=== PATIENT | female | born 1945 | race Caucasian/White ===

== ENCOUNTER → 2016-11-03 | Outpatient (CLI) | payer MEDICARE, BC ==
[~2016-11-03] MED LIST: ACCUPRIL10 M1 PO; ACCUPRIL20TAB PO; ACIDOPHILUS PO; AMBIEN 5MG TABLE5 MG PO; ANTI-DIARRHEAL2 MG PO; ASPIRIN 81M81 MG/TA2 PO; BINOSTO; BYSTOLIC5 MG PO; CALCIUM 500500 M1 PO; CALCIUM 600MG+D1 TAB PO; CALCIUM600 M2 PO; CARAFATE 1GM1 G PO; CARDI-OMEGA1000 MG PO; CIPRO 500MG TA500 MG PO; CLEOCIN HCL300 MG PO; CLONIDINE0.1 MG PO; COLACE 100100 MG/CAP PO; DULCOLAX S10 MG/SUPP RC; DUO-KAPS1 CAP PO; EPA FISH OIL1 SGL PO; FISH OIL 1000MG1 CAP PO; FISH OIL CONC1000 MG PO; FLAGYL500 MG PO; FLAXSEED OIL1 CAP PO; FLEXERIL5 MG PO; FLONASE NASAL S16 GM NS; FLONASEALLERGY NS; GAVISCON 80 MG-1 CT1 PO; GLUCOSAMINE; IBU800 M1 PO; LIDODERM PATCH TP; MAGNESIUM CITR100 MG PO; MELAT3MGTAB PO; METAMUCIL1 PDR PO; METRONIDAZOLE500 MG PO; MILK OF MA400 MG/52 PO; MULTIPLE VITAMI1 TA5 PO; NEURONTIN300 MG/CAP PO; NEW ENERGY1 CAP PO; NORCO 325 MG-51 TAB PO; OYSCO 500500 M1 PO; OYSTER CALCIUM500 M1 PO; PERCOCET 325 MG1 TA2 PO; PLAVIX 75MG TAB75 MG PO; POTASSIUM CH2 MEQ/ML PO; POTASSIUM20 MEQ PO; PRIL40 PO; PRILOSEC 20MG20 MG PO; PROBIOTIC-MAJOR PO; PROTONIX 40MG T40 MG PO; PROTONIX20 MG PO; PROTONIX40 MG PO; QUINAPRIL HCL20 MG PO; ROXICODONE 55 MG/TAB PO; SENOKOT S 50 MG1 TAB PO; SUPER EPA W/BO400 MG PO; TOPROL XL 25MG25 MG PO; TUMS500 MG PO; TYLENOL 325MG325 MG PO; TYLENOL 8 HR PO; TYLENOL ARTHRI650 M1 PO; ULTRAM 50MG TAB50 MG PO; VALIUM 2MG T2 MG/TAB PO; VITAMIN C500 MG PO; VITAMIN D32000 IU PO; VITAMINC500CH PO; XARELTO10 MG PO; XOPENEX 0.0.63 MG/3 IH; ZANAFLEX CAPSULE2 MG PO; ZANAFLEX2 MG PO; [UNRECOGNIZED DRUG - OTHER] PO; [UNRECOGNIZED DRUG - OTHER] PO
== END ==
LOC: COL.RAD 07:54
DX: I65.23 Occlusion and stenosis of bilateral carotid arteries (principal); R42 Dizziness and giddiness
CPT/HCPCS: A9585

== ENCOUNTER 2017-02-23 01:23 | Emergency (ER) | payer MEDICARE, BC ==
[~2017-02-23] VITALS: Ht 165.1 cm; Wt 65.9 kg
[~2017-02-23 01:23] MED LIST changes: -ASPIRIN 81M81 MG/TA2 PO; -BINOSTO; -CALCIUM 600MG+D1 TAB PO; -EPA FISH OIL1 SGL PO; -FLEXERIL5 MG PO; -MAGNESIUM CITR100 MG PO; -PLAVIX 75MG TAB75 MG PO; -PROTONIX20 MG PO; -TOPROL XL 25MG25 MG PO; -TYLENOL 8 HR PO; -VITAMIN C500 MG PO; -VITAMIN D32000 IU PO; -ZANAFLEX CAPSULE2 MG PO
[2017-02-23 01:34] VITALS: TEMP 97.1
[2017-02-23 02:04] LABS: BASO # 0.1 (0.0-0.2); EOS # 0.1 (0.0-0.7); EOS % 1.8 % (0-4.0); GRAN # 2.5 (1.4-6.5); GRAN % 49.5 % (42.2-75.2); HEMATOCRIT 40.3 % (37.0-47.0); HEMOGLOBIN 13.4 g/dl (12.5-16.0); LYMPH # 1.9 (1.2-3.4); LYMPH % 38.2 % (20.0-51.0); MEAN CELL VOLUME 94 fl (80.0-100.0); MEAN CORPUSCULAR HEMOGLOBIN 31 pg (27.0-31.0); MEAN CORPUSCULAR HGB CONC 33 g/dl (33.0-37.0); MEAN PLATELET VOLUME 10.5 fl (7.4-10.4); MONO # 0.5 (0.1-0.6); MONO % 9.3 % (1.7-9.3); PLATELET COUNT 272 K/mm3 (130-400); RED BLOOD COUNT 4.27 M/mm3 (4.10-5.30); REDCELL DISTRIBUTION WIDTH-CV 12.8 % (11.5-14.5); WHITE BLOOD COUNT 5.1 K/mm3 (4.8-10.8)
[2017-02-23 02:09] LABS: INR 1.1 (0.8-3.0); PROTHROMBIN TIME 11.8 SECONDS (9.7-12.8)
[2017-02-23 02:12] LABS: PARTIAL THROMBOPLASTIN TIME 32.8 SECONDS (26.0-37.0)
[2017-02-23 02:17] LABS: ALANINE AMINOTRANSFERASE 28 U/L (9-52); ALBUMIN 4.1 gm/dL (3.5-5.0); ALKALINE PHOSPHATASE 61 U/L (50-136); ANION GAP 10 mmol/L (7-16); BILIRUBIN,TOTAL 0.9 mg/dL (0.0-1.0); BLOOD UREA NITROGEN 14 mg/dL (7-17); CALCIUM 9.1 mg/dL (8.4-10.2); CARBON DIOXIDE 26 mmol/L (22-30); CHLORIDE 103 mmol/L (98-107); CREATININE, serum 0.63 mg/dL (0.52-1.25); GLUCOSE 95 mg/dL (74-106); MAGNESIUM 1.8 mg/dL (1.6-2.3); POTASSIUM 4.5 mmol/L (3.4-5.0); SODIUM 139 mmol/L (137-145)
[2017-02-23] MEDS ORDERED: TOPROL XL 25MG25 MG PO (02:22)
[2017-02-23] MEDS ORDERED: PRILOSEC 20MG20 MG PO (02:22)
[2017-02-23] MEDS ORDERED: EPA FISH OIL1 SGL PO (02:25)
[2017-02-23] MEDS ORDERED: MAGNESIUM CITR100 MG PO (02:25)
[2017-02-23] MEDS ORDERED: CALCIUM 600MG+D1 TAB PO (02:25)
[2017-02-23] MEDS ORDERED: ASPIRIN 81M81 MG/TA2 PO (02:27)
[2017-02-23] MEDS ORDERED: PLAVIX 75MG TAB75 MG PO (02:27)
[2017-02-23] MEDS ORDERED: ULTRAM 50MG TAB50 MG PO (02:28)
[2017-02-23] MEDS ORDERED: VITAMIN C500 MG PO (02:28)
[2017-02-23] MEDS ORDERED: PROTONIX 40MG T40 MG PO (02:28)
[2017-02-23] MEDS ORDERED: AMBIEN 5MG TABLE5 MG PO (02:29)
[2017-02-23] MEDS ORDERED: ZANAFLEX CAPSULE2 MG PO (02:29)
[2017-02-23] MEDS ORDERED: BINOSTO (02:31)
[2017-02-23] MEDS ORDERED: TYLENOL 8 HR PO (02:31)
[2017-02-23] MEDS ORDERED: VITAMIN D32000 IU PO (02:31)
[2017-02-23] MEDS ORDERED: PROTONIX20 MG PO (02:32)
[2017-02-23 02:36] LABS: TROPONIN-I < 0.012 ng/mL (0.000-0.034)
[2017-02-23] MEDS ORDERED: FLEXERIL5 MG PO (05:29)
[2017-02-23 05:37] VITALS: BP 127/69; PULSE 60
== END 2017-02-23 06:16 | disposition home or self-care (01) ==
LOC: COL.ER 01:23
PROVIDERS: Emergency Medicine
DX: R07.9 Chest pain, unspecified (principal); R25.2 Cramp and spasm; I10 Essential (primary) hypertension; K21.9 Gastro-esophageal reflux disease without esophagitis
CPT/HCPCS: J2360; J2405

== ENCOUNTER 2017-04-01 21:38 | Emergency (ER) | payer MEDICARE, BC ==
[~2017-04-01] VITALS: Ht 165.1 cm; Wt 63.6 kg
[~2017-04-01 21:38] MED LIST changes: +ASPIRIN 81M81 MG/TA2 PO; +BINOSTO; +CALCIUM 600MG+D1 TAB PO; +EPA FISH OIL1 SGL PO; +FLEXERIL5 MG PO; +MAGNESIUM CITR100 MG PO; +PLAVIX 75MG TAB75 MG PO; +PROTONIX20 MG PO; +TOPROL XL 25MG25 MG PO; +TYLENOL 8 HR PO; +VITAMIN C500 MG PO; +VITAMIN D32000 IU PO; +ZANAFLEX CAPSULE2 MG PO
[2017-04-01 21:41] VITALS: BP 161/72; TEMP 98.5
[2017-04-01 22:32] VITALS: PULSE 60
== END 2017-04-01 22:32 | disposition home or self-care (01) ==
LOC: COL.ER 21:38
DX: H60.92 Unspecified otitis externa, left ear (principal)

== ENCOUNTER → 2017-09-27 | Outpatient (CLI) | payer MEDICARE, BC | LOC: MC.RAD 10:33 | DX: Z12.31 Encounter for screening mammogram for malignant neoplasm of breast (principal) ==

== ENCOUNTER 2018-09-10 19:50 | Emergency (ER) | payer MEDICARE, BC ==
[~2018-09-10] VITALS: Ht 165.1 cm; Wt 63.6 kg
[2018-09-10 20:08] VITALS: TEMP 97.6
[2018-09-10] MEDS ORDERED: ACCUPRIL20TAB PO (20:32)
[2018-09-10] MEDS ORDERED: NIACIN 64 MG-501 TA1 (20:35)
[2018-09-10] MEDS ORDERED: SINGULAIR 110 MG/TAB PO (20:35)
[2018-09-10] MEDS ORDERED: ZANTAC 300300 MG PO (20:35)
[2018-09-10 21:54] VITALS: BP 143/83; PULSE 75
== END 2018-09-10 21:55 | disposition home or self-care (01) ==
LOC: COL.ER 19:50
DX: S50.11XA Contusion of right forearm, initial encounter (principal); S01.81XA Laceration without foreign body of other part of head, initial encounter; I10 Essential (primary) hypertension; Z23 Encounter for immunization; W01.0XXA Fall on same level from slipping, tripping and stumbling without subsequent striking against object, initial encounter

== ENCOUNTER → 2018-09-28 | Outpatient (CLI) | payer MEDICARE, BC ==
[~2018-09-28] MED LIST changes: +NIACIN 64 MG-501 TA1; +SINGULAIR 110 MG/TAB PO; +ZANTAC 300300 MG PO
== END ==
LOC: MC.RAD 09:20
DX: Z12.31 Encounter for screening mammogram for malignant neoplasm of breast (principal)

== ENCOUNTER 2019-03-19 07:31 | Day surgery (SDC) | payer MEDICARE, BC ==
[~2019-03-19] VITALS: Ht 166.4 cm; Wt 64.3 kg
[~2019-03-19 07:31] MED LIST changes: +MASON NATURAL2000 IU PO; -VITAMIN D32000 IU PO
[2019-03-19 07:59] VITALS: BP 137/71; PULSE 60; TEMP 97.7
[2019-03-19] MEDS ORDERED: TURMERIC500 MG PO (08:09)
[2019-03-19] MEDS ORDERED: MASTIC GUM PO (08:11)
[2019-03-19] MEDS ORDERED: HAIRSKINNAILS PO (08:11)
[2019-03-19 09:55] VITALS: BP 142/83; PULSE 68; TEMP 97.5
--- NOTE | 2019-03-19 09:55 | NUR ---
The patient arrived back to [facility] from the endoscopy suite at this time. The patient appears very drowsy but ambulated from the cart to the recliner in her room with the stand by assistance of two nurses. The patient reports increased pain in her throat and stomach at this time. Dr. Steen is at the patient's bedside assessing her abdomen which is soft to touch. The patient's post procedure vital signs were started at this time. The patient's remains at her bedside at this time. Call light is within reach. Will continue to monitor the patient.
[2019-03-19 10:10] VITALS: BP 130/74; PULSE 53
--- NOTE | 2019-03-19 10:10 | NUR ---
The patient appears to be tolerating the ice chips well and states they are "helping" her throat. The patient's vital signs appear stable. The patient's remains at her bedside. Will continue to monitor the patient.
[2019-03-19 10:25] VITALS: BP 134/65; PULSE 53
--- NOTE | 2019-03-19 10:25 | NUR ---
The patient agrees to try some vanilla pudding at this time. The patient states the discomfort is "better". The patient denies wanting anything further to drink at this time. Will continue to monitor the patient.
[2019-03-19 10:50] VITALS: BP 123/63; PULSE 60
--- NOTE | 2019-03-19 10:54 | NUR ---
Dr. Steen's office was called to provide an update of the patient's condition. [place], office staff took the report given and verbalized understanding. She is going to pass the message to Dr. Steen.
--- NOTE | 2019-03-19 10:55 | NUR ---
The patient is standing up in her room and walking in place to "help relieve the air". The patient states it feels "much better to stand". Vital signs appear stable. The patient finished her pudding and appeared to tolerate it well. remains at her bedside. IV was INT'd so the patient could walk around her room. Will continue to monitor the patient.
--- NOTE | 2019-03-19 11:10 | NUR ---
The patient is up walking to the bathroom indpendently with the use of her 's walker. She appeared to tolerate the activity well.
--- NOTE | 2019-03-19 11:20 | NUR ---
Discharge instructions were reviewed with the patient and her at this time. They both verbalized understanding and have no questions for the nurse at this time. The patient's IV to her right forearm was removed and a pressure dressing was applied. The patient is dressed and ready to be escorted out.
--- NOTE | 2019-03-19 11:30 | NUR ---
The patient was escorted out via wheelchair to a private vehicle by ARON Johnson. The patient's belongings and discharge papework were sent with her. The patient's is present to drive her home.
== END 2019-03-19 11:30 | disposition home or self-care (01) ==
LOC: SDCO 07:31
DX: Z12.11 Encounter for screening for malignant neoplasm of colon (principal); Z80.0 Family history of malignant neoplasm of digestive organs; Z87.19 Personal history of other diseases of the digestive system; D12.3 Benign neoplasm of transverse colon; K64.0 First degree hemorrhoids; K57.30 Diverticulosis of large intestine without perforation or abscess without bleeding; K31.7 Polyp of stomach and duodenum; K44.9 Diaphragmatic hernia without obstruction or gangrene; K29.30 Chronic superficial gastritis without bleeding; M48.061 Spinal stenosis, lumbar region without neurogenic claudication; E78.00 Pure hypercholesterolemia, unspecified; I10 Essential (primary) hypertension; Z79.899 Other long term (current) drug therapy; J45.909 Unspecified asthma, uncomplicated; M81.0 Age-related osteoporosis without current pathological fracture; Z98.1 Arthrodesis status; K58.9 Irritable bowel syndrome, unspecified; K59.00 Constipation, unspecified
CPT/HCPCS: J2704; J3010; J7030

== ENCOUNTER 2019-03-28 14:37 | Emergency (ER) | payer MEDICARE, BC ==
[~2019-03-28] VITALS: Ht 165.1 cm; Wt 64.5 kg
[~2019-03-28 14:37] MED LIST changes: +HAIRSKINNAILS PO; +MASTIC GUM PO; +TURMERIC500 MG PO
[2019-03-28 14:49] VITALS: TEMP 97.7
[2019-03-28 15:22] LABS: BASO % 0.5 % (0.0-2.0); EOS # 0.1 (0.0-0.7); EOS % 0.8 % (0-4.0); GRAN # 3.9 (1.4-6.5); GRAN % 61.7 % (42.2-75.2); HEMATOCRIT 37.8 % (37.0-47.0); HEMOGLOBIN 12.5 g/dl (12.5-16.0); LYMPH # 1.7 (1.2-3.4); LYMPH % 26.6 % (20.0-51.0); MEAN CELL VOLUME 93 fl (80.0-100.0); MEAN CORPUSCULAR HEMOGLOBIN 31 pg (27.0-31.0); MEAN CORPUSCULAR HGB CONC 33 g/dl (33.0-37.0); MEAN PLATELET VOLUME 10.6 fl (7.4-10.4); MONO # 0.6 (0.1-0.6); MONO % 10.1 % (1.7-9.3); PLATELET COUNT 303 K/mm3 (130-400); RED BLOOD COUNT 4.07 M/mm3 (4.10-5.30); REDCELL DISTRIBUTION WIDTH-CV 12.9 % (11.5-14.5)
[2019-03-28] MEDS ORDERED: ZANTAC 150MG T150 MG PO (15:28)
[2019-03-28 15:42] LABS: ALANINE AMINOTRANSFERASE 10 U/L (9-52); ALBUMIN 3.8 gm/dL (3.5-5.0); ALKALINE PHOSPHATASE 69 U/L (50-136); ANION GAP 10 mmol/L (7-16); AST,SGOT 21 U/L (15-37); BILIRUBIN,TOTAL 0.3 mg/dL (0.0-1.0); BLOOD UREA NITROGEN 18 mg/dL (7-17); C-REACTIVE PROTEIN < 0.5 mg/dL (0.0-0.9); CALCIUM 9.3 mg/dL (8.4-10.2); CARBON DIOXIDE 24 mmol/L (22-30); CHLORIDE 107 mmol/L (98-107); CREATININE, serum 0.59 (0.52-1.25); GLUCOSE 110 mg/dL (74-106); POTASSIUM 4.2 mmol/L (3.4-5.0); SODIUM 141 mmol/L (137-145); TOTAL PROTEIN 6.9 gm/dL (6.4-8.2)
[2019-03-28 15:52] LABS: PROTHROMBIN TIME 11.4 SECONDS (9.7-12.8)
[2019-03-28 15:55] LABS: PARTIAL THROMBOPLASTIN TIME 33.5 SECONDS (26.0-37.0)
[2019-03-28 17:08] VITALS: BP 123/69; PULSE 59
== END 2019-03-28 17:10 | disposition home or self-care (01) ==
LOC: COL.ER 14:37
PROVIDERS: Physician Assistant
DX: R19.7 Diarrhea, unspecified (principal); Z79.02 Long term (current) use of antithrombotics/antiplatelets; Z87.11 Personal history of peptic ulcer disease
CPT/HCPCS: J2405; J7030; Q9967

== ENCOUNTER 2019-03-30 19:01 | Inpatient (IN) | payer MEDICARE, BC ==
[~2019-03-30] VITALS: Ht 167.6 cm; Wt 66.1 kg
[~2019-03-30 19:01] MED LIST changes: +ZANTAC 150MG T150 MG PO
[2019-03-30 19:31] LABS: BASO # 0.1 (0.0-0.2); BASO % 0.7 % (0.0-2.0); EOS # 0.1 (0.0-0.7); GRAN # 4.7 (1.4-6.5); HEMATOCRIT 33.7 % (37.0-47.0); HEMOGLOBIN 11.2 g/dl (12.5-16.0); LYMPH % 34.8 % (20.0-51.0); MEAN CELL VOLUME 94 fl (80.0-100.0); MEAN CORPUSCULAR HEMOGLOBIN 31 pg (27.0-31.0); MEAN CORPUSCULAR HGB CONC 33 g/dl (33.0-37.0); MEAN PLATELET VOLUME 10.9 fl (7.4-10.4); MONO # 0.8 (0.1-0.6); MONO % 9.3 % (1.7-9.3); PLATELET COUNT 322 K/mm3 (130-400); RED BLOOD COUNT 3.59 M/mm3 (4.10-5.30)
[2019-03-30 19:44] LABS: ALANINE AMINOTRANSFERASE 16 U/L (9-52); ALBUMIN 4.1 gm/dL (3.5-5.0); ALKALINE PHOSPHATASE 74 U/L (50-136); ANION GAP 11 mmol/L (7-16); AST,SGOT 20 U/L (15-37); BILIRUBIN,TOTAL 0.2 mg/dL (0.0-1.0); BLOOD UREA NITROGEN 28 mg/dL (7-17); CALCIUM 9.7 mg/dL (8.4-10.2); CARBON DIOXIDE 24 mmol/L (22-30); CHLORIDE 106 mmol/L (98-107); CREATININE, serum 0.76 (0.52-1.25); GLUCOSE 103 mg/dL (74-106); LIPASE 249 U/L (23-300); POTASSIUM 4.2 mmol/L (3.4-5.0); SODIUM 140 mmol/L (137-145); TOTAL PROTEIN 7.1 gm/dL (6.4-8.2)
[2019-03-30 20:00] LABS: C-REACTIVE PROTEIN < 0.5 mg/dL (0.0-0.9)
[2019-03-30] MEDS ORDERED: TYLENOL 8 HR PO (21:10)
[2019-03-30] MEDS ORDERED: AMBIEN 10MG10 MG PO (21:15)
[2019-03-30 21:53] VITALS: BP 114/67; PULSE 68; TEMP 98.4
--- NOTE | 2019-03-30 23:43 | NUR ---
PT ARRIVED FROM ER VIA W/C. PT AMBULATES WITHOUT DIFFICULTIES AND NO ASSISTED DEVICES. PT CONCERNED ABOUT BEING ADMITTED OBSERVATION BECAUSE INSURANCE WILL NOT PAY. PT HAD A SMALL STOOL THAT WAS BLACK TARY AND WITH BLOOD X1 SINCE SHE HAS COME UP TO MEDICAL FLOOR. PT AWARE THAT SHE IS NPO AT THIS TIME. PT REFUSED ZANTAC BECAUSE SHE HAD TAKEN 3 DOSES BEFORE COMING TO THE HOSPITAL . PT HAS NO NEEDS AT THIS TIME, CALL LIGHT WITHIN REACH.
[2019-03-31] VITALS (8 sets, daily range): BP systolic 104–144; BP diastolic 43–69; PULSE 46–72; TEMP 97.9–98.5
--- NOTE | 2019-03-31 02:08 | NUR ---
CALLED RAZ QUIROZ IN REFERENCE TO PT'S REQUEST TO GIVE ANOTHER DOSE OF AMBIEN 2.5 MG PO. RAZ QUIROZ ADVISED IT WOULD BE OKAY TO GIVE AMBIEN 2.5 MG PO X1 DOSE ONLY.
[2019-03-31 03:00] LABS: COLLECTION METHOD CATHETER
[2019-03-31 03:08] LABS: PH 6 (5-8); SQUAMOUS EPITHELIAL 0-2 /hpf; URINE APPEARANCE Clear; URINE BACTERIA None Seen /hpf; URINE BILIRUBIN Negative (NEGATIVE); URINE BLOOD Negative (NEGATIVE); URINE COLOR Yellow; URINE GLUCOSE Negative (NEGATIVE); URINE KETONE Negative (NEGATIVE); URINE LEUKOCYTE ESTERASE Trace (NEGATIVE); URINE NITRATE Negative (NEGATIVE); URINE PROTEIN(semi-quant) Negative (NEGATIVE); URINE RBC 0-2 /hpf; URINE UROBILINOGEN Negative (NEGATIVE)
--- NOTE | 2019-03-31 04:38 | NUR ---
AFTER GIVEN 2ND DOSE OF AMBIEN 2.5 MG PO. PT HAS BEEN SLEEPING/RESTING WITH NO S/S OF PAIN OR DISCOMFORT NOTED. CALL LIGHT WITHIN REACH.
[2019-03-31 06:28] LABS: BASO % 0.9 % (0.0-2.0); EOS # 0.1 (0.0-0.7); EOS % 2.8 % (0-4.0); GRAN % 46.2 % (42.2-75.2); LYMPH # 1.7 (1.2-3.4); LYMPH % 38.6 % (20.0-51.0); MEAN CELL VOLUME 94 fl (80.0-100.0); MEAN CORPUSCULAR HGB CONC 33 g/dl (33.0-37.0); MEAN PLATELET VOLUME 10.6 fl (7.4-10.4); MONO # 0.5 (0.1-0.6); RED BLOOD COUNT 2.64 M/mm3 (4.10-5.30); REDCELL DISTRIBUTION WIDTH-CV 13.2 % (11.5-14.5)
[2019-03-31 06:37] LABS: CALCIUM 7.9 mg/dL (8.4-10.2); CREATININE, serum 0.6 (0.52-1.25); POTASSIUM 4.1 mmol/L (3.4-5.0)
[2019-03-31 06:59] LABS: HEMATOCRIT 24.9 % (37.0-47.0); HEMOGLOBIN 8.1 g/dl (12.5-16.0); MEAN CORPUSCULAR HEMOGLOBIN 31 pg (27.0-31.0)
[2019-03-31 07:00] LABS: PLATELET COUNT 221 K/mm3 (130-400)
--- NOTE | 2019-03-31 08:30 | NUR ---
PATIENT ASSESSMENT COMPLETED. PREOP CONSENT SIGNED AND CHECKLIST TO BE COMPLETED. DENIES FURTHER QUESTIONS.
--- NOTE | 2019-03-31 12:17 | NUR ---
Patient lives at home with her (Pako Griffin [phone], ) in [place], [place] and plans to return home with her upon discharge. Patient does not have any durable medical equipment anticipated needs at this time and receives assistance form her as needed. her primary care physician is Dr. Opal Maxwell and also receives care from Dr. Steen, her pharmacy is [facility], and she does have advance directives of healthcare (DPOA-HC and living will) completed at this time. Patient's daughter, Ketty Griffin, is also supportive of the patient's needs and there are no further needs at this time.
[2019-03-31 14:18] LABS: HEMATOCRIT 26.3 % (37.0-47.0); HEMOGLOBIN 8.6 g/dl (12.5-16.0)
--- NOTE | 2019-03-31 18:17 | NUR ---
PATIENT IS TRANSFERED TO ROOM 343 WITH BELONGINGS.SHE DENIES ANY NEEDS AFTER ASSISTED TO THE RESTROOM. VOIDED WITHOUT DIFFICULTY.
--- NOTE | 2019-03-31 23:58 | NUR ---
Patient noted to have a large dark red colored stool that was watery in consistency. Patient states she felt really weak and shaky after this episode. States she has a headache, and requests Tylenol and ambien. Patient educated to call staff when she gets up, d/t the weakness. Wears incontinent briefs and has had to change it once this shift so far d/t small amount of bowel on it. Will continue to monitor patient closely.
[2019-04-01] VITALS (7 sets, daily range): BP systolic 100–152; BP diastolic 41–70; PULSE 53–64; TEMP 97.8–98.4
[2019-04-01 05:47] LABS: BASO % 0.8 % (0.0-2.0); EOS # 0.2 (0.0-0.7); EOS % 5.2 % (0-4.0); GRAN # 1.6 (1.4-6.5); GRAN % 44.2 % (42.2-75.2); LYMPH # 1.5 (1.2-3.4); LYMPH % 41.1 % (20.0-51.0); MEAN CELL VOLUME 95 fl (80.0-100.0); MEAN CORPUSCULAR HGB CONC 33 g/dl (33.0-37.0); MEAN PLATELET VOLUME 10.6 fl (7.4-10.4); MONO # 0.3 (0.1-0.6); MONO % 8.4 % (1.7-9.3); PLATELET COUNT 212 K/mm3 (130-400); RED BLOOD COUNT 2.65 M/mm3 (4.10-5.30); REDCELL DISTRIBUTION WIDTH-CV 13.2 % (11.5-14.5)
[2019-04-01 05:55] LABS: HEMATOCRIT 25.2 % (37.0-47.0); HEMOGLOBIN 8.2 g/dl (12.5-16.0); MEAN CORPUSCULAR HEMOGLOBIN 31 pg (27.0-31.0)
--- NOTE | 2019-04-01 05:59 | NUR ---
No further loose, bloody stools this shift. Patient continues to complain of weakness, and hemoglobin resulted at 8.2 this morning. Will continue to monitor patient closely.
--- NOTE | 2019-04-01 11:21 | NUR ---
Patient alert and oriented, answers questions appropriately. See assessment. Abdomen soft, non tender, no guarding noted with palpation. +Flatus. Bowel sounds active x4 quads. Small amount of loose coffee ground stool noted in toilet. No c/o at this time.
--- NOTE | 2019-04-01 13:00 | NUR ---
First visit from the ab initio etl developer. Trouble Shooter prayed with patient and family. No other needs right now.
[2019-04-01 14:41] LABS: HEMATOCRIT 30.9 % (37.0-47.0)
[2019-04-02 02:47] VITALS: BP 106/66; PULSE 68; TEMP 98.1
--- NOTE | 2019-04-02 03:51 | NUR ---
Patient has rested well throughout the night. Requested an additional 2.5mg of Ambien which Lorena ordered for her. Patient currently resting in bed with call light in reach. Denies any needs. Will continue to monitor.
[2019-04-02 06:59] LABS: BASO # 0.1 (0.0-0.2); BASO % 1.2 % (0.0-2.0); EOS # 0.3 (0.0-0.7); GRAN # 1.8 (1.4-6.5); GRAN % 43.9 % (42.2-75.2); LYMPH # 1.5 (1.2-3.4); LYMPH % 38.4 % (20.0-51.0); MEAN CELL VOLUME 94 fl (80.0-100.0); MEAN CORPUSCULAR HGB CONC 33 g/dl (33.0-37.0); MONO # 0.4 (0.1-0.6); PLATELET COUNT 258 K/mm3 (130-400); RED BLOOD COUNT 2.92 M/mm3 (4.10-5.30); REDCELL DISTRIBUTION WIDTH-CV 13.2 % (11.5-14.5)
[2019-04-02 07:08] LABS: CALCIUM 8.8 mg/dL (8.4-10.2); CREATININE, serum 0.57 (0.52-1.25); POTASSIUM 3.7 mmol/L (3.4-5.0)
[2019-04-02 07:10] LABS: HEMATOCRIT 27.4 % (37.0-47.0); HEMOGLOBIN 9.1 g/dl (12.5-16.0); MEAN CORPUSCULAR HEMOGLOBIN 31 pg (27.0-31.0)
--- NOTE | 2019-04-02 08:09 | NUR ---
rounded. General diet ordered & breakfast ordered. Patient hopeful for discharge home this afternoon. Int. Denies pain & nausea. Will monitor.
[2019-04-02 08:12] VITALS: BP 149/60; PULSE 65; TEMP 98.9
--- NOTE | 2019-04-02 10:48 | NUR ---
Hospitalist team rounded. PLans to DC this afternoon. She has tolerated breakfast.
[2019-04-02] MEDS ORDERED: FERRO-TIME325 MG PO (11:57)
[2019-04-02 13:05] VITALS: BP 131/64; PULSE 74; TEMP 98.7
--- NOTE | 2019-04-02 16:50 | NUR ---
Patient ready for discharge. Patient spouse here to take her home. She has done well today. Vss. Int DC. Patient has had no bowel movements today, which she was concerned about educated her on that it may take a few days. We reviewed iron supplement & potential constipation. She will use miralax if needed. We dicsussed home medications & she verified understanding of what medications need to be held. Gi & PCP follow up appt scheduled & reviewed. She will get follow up labs drawn . Patient ambulated out with all belongings.
== END 2019-04-02 16:55 | disposition home or self-care (01) | DRG 920 ==
LOC: COL.ER 19:01 → MEDICAL 20:14 → SURG 03-31 18:56
PROVIDERS: Emergency Medicine; Internal Medicine Gastroenterology; Nurse Practitioner Family; Physician Assistant; ADMIT Family Medicine
PROC: 0DJ08ZZ Inspection of Upper Intestinal Tract, Via Natural or Artificial Opening Endoscopic (ICD-10-PCS; principal; 2019-03-31 09:00)
DX: K91.840 Postprocedural hemorrhage of a digestive system organ or structure following a digestive system procedure (principal); D62 Acute posthemorrhagic anemia; I10 Essential (primary) hypertension; E78.5 Hyperlipidemia, unspecified; I66.02 Occlusion and stenosis of left middle cerebral artery; M81.0 Age-related osteoporosis without current pathological fracture; I65.23 Occlusion and stenosis of bilateral carotid arteries; Z88.2 Allergy status to sulfonamides; Z88.8 Allergy status to other drugs, medicaments and biological substances; K21.9 Gastro-esophageal reflux disease without esophagitis; Y83.8 Other surgical procedures as the cause of abnormal reaction of the patient, or of later complication, without mention of misadventure at the time of the procedure; K58.1 Irritable bowel syndrome with constipation
CPT/HCPCS: 99222-AI; 99232-AI; 99239; C9113; G0378; J2405; J2704; J7030

== ENCOUNTER 2019-04-18 15:56 | Outpatient (CLI) | payer MEDICARE, BC ==
[~2019-04-18] VITALS: Ht 167.6 cm; Wt 65.7 kg
[~2019-04-18 15:56] MED LIST changes: +AMBIEN 10MG10 MG PO; +FERRO-TIME325 MG PO
[2019-04-18] MEDS ORDERED: MASON NATURAL1200 MG PO (16:19)
[2019-04-18] MEDS ORDERED: PLAVIX 75MG TAB75 MG PO (16:19)
[2019-04-18] MEDS ORDERED: HAIRSKINNAILS PO (16:20)
[2019-04-18] MEDS ORDERED: OMEGA-31 SGL PO (16:20)
[2019-04-18] MEDS ORDERED: BENADRYL25 M2 PO (16:21)
[2019-04-18] MEDS ORDERED: CALCIUM CARBON650 M2 (16:22)
[2019-04-18 16:33] VITALS: BP 103/42; PULSE 67; TEMP 98.5
== END 2019-04-18 18:00 | disposition home or self-care (01) ==
LOC: EUO 15:56
DX: M81.0 Age-related osteoporosis without current pathological fracture (principal)
CPT/HCPCS: J3489

== ENCOUNTER → 2019-08-30 | Outpatient (CLI) | payer MEDICARE, BC ==
[~2019-08-30] MED LIST changes: +BENADRYL25 M2 PO; +CALCIUM CARBON650 M2; +MASON NATURAL1200 MG PO; +OMEGA-31 SGL PO
[2019-08-30 09:50] LABS: BASO % 0.9 % (0.0-2.0); EOS # 0.1 (0.0-0.7); EOS % 1.7 % (0-4.0); GRAN # 2.7 (1.4-6.5); GRAN % 56.8 % (42.2-75.2); HEMATOCRIT 37.5 % (37.0-47.0); HEMOGLOBIN 12.4 g/dl (12.5-16.0); LYMPH # 1.4 (1.2-3.4); LYMPH % 29.1 % (20.0-51.0); MEAN CELL VOLUME 92 fl (80.0-100.0); MEAN CORPUSCULAR HEMOGLOBIN 30 pg (27.0-31.0); MEAN CORPUSCULAR HGB CONC 33 g/dl (33.0-37.0); MEAN PLATELET VOLUME 10.9 fl (7.4-10.4); MONO # 0.5 (0.1-0.6); MONO % 11.3 % (1.7-9.3); PLATELET COUNT 274 K/mm3 (130-400); REDCELL DISTRIBUTION WIDTH-CV 14.1 % (11.5-14.5)
[2019-08-30 10:12] LABS: ALBUMIN 4.1 gm/dL (3.5-5.0); BILIRUBIN,TOTAL 0.6 mg/dL (0.0-1.0); CHOLESTEROL RISK RATIO 3.9; CREATININE, serum 0.66 (0.52-1.25); TOTAL PROTEIN 7.2 gm/dL (6.4-8.2)
[2019-08-30 10:41] LABS: THYROID STIMULATING HORMONE 0.208 uIU/mL (0.465-4.680)
== END ==
LOC: COL.LAB 09:06
PROVIDERS: Internal Medicine
DX: I10 Essential (primary) hypertension (principal); E55.9 Vitamin D deficiency, unspecified; E78.5 Hyperlipidemia, unspecified; M85.80 Other specified disorders of bone density and structure, unspecified site; E78.00 Pure hypercholesterolemia, unspecified

== ENCOUNTER → 2019-09-09 | Outpatient (CLI) | payer MEDICARE, BC | LOC: MC.RAD 12:55 | DX: Z12.31 Encounter for screening mammogram for malignant neoplasm of breast (principal) ==

== ENCOUNTER 2020-03-27 10:30 | Outpatient (RCR) | payer MEDICARE, BC ==
[2020-04-23] MEDS ORDERED: PEPCID 20MG TAB20 MG PO (16:24)
== END 2020-06-16 | disposition home or self-care (01) ==
LOC: MKS.ESL.PT
DX: H81.12 Benign paroxysmal vertigo, left ear (principal)

== ENCOUNTER → 2020-03-31 | Outpatient (CLI) | payer MEDICARE, BC ==
[2020-03-31 14:15] LABS: HEMATOCRIT 43.9 % (37.0-47.0); HEMOGLOBIN 14.4 g/dl (12.5-16.0); MEAN CELL VOLUME 96 fl (80.0-100.0); MEAN CORPUSCULAR HEMOGLOBIN 31 pg (27.0-31.0); MEAN CORPUSCULAR HGB CONC 33 g/dl (33.0-37.0); MEAN PLATELET VOLUME 10.6 fl (7.4-10.4); PLATELET COUNT 283 K/mm3 (130-400); RED BLOOD COUNT 4.59 M/mm3 (4.10-5.30); REDCELL DISTRIBUTION WIDTH-CV 13.2 % (11.5-14.5)
[2020-03-31 14:41] LABS: ALANINE AMINOTRANSFERASE 23 U/L (4-34); ALBUMIN 4.4 gm/dL (3.5-5.0); ALKALINE PHOSPHATASE 72 U/L (50-136); ANION GAP 9 mmol/L (7-16); AST,SGOT 34 U/L (15-37); BILIRUBIN,TOTAL 0.5 mg/dL (0.0-1.0); BLOOD UREA NITROGEN 18 mg/dL (7-17); CALCIUM 10.2 mg/dL (8.4-10.2); CARBON DIOXIDE 29 mmol/L (22-30); CHLORIDE 100 mmol/L (98-107); CREATININE, serum 0.71 (0.52-1.25); GLUCOSE 95 mg/dL (74-106); POTASSIUM 4.3 mmol/L (3.4-5.0); SODIUM 137 mmol/L (137-145)
[2020-03-31 14:55] LABS: TROPONIN-I < 0.012 ng/mL (0.000-0.035)
[2020-03-31 15:11] LABS: THYROID STIMULATING HORMONE 0.158 uIU/mL (0.465-4.680)
== END ==
LOC: COL.RAD 13:27
PROVIDERS: Internal Medicine
DX: R07.89 Other chest pain (principal)

== ENCOUNTER → 2020-03-31 | Outpatient (CLI) | payer MEDICARE, BC | LOC: COL.RAD 15:46 | DX: R07.89 Other chest pain (principal); R79.1 Abnormal coagulation profile | CPT/HCPCS: Q9967 ==

== ENCOUNTER → 2020-04-10 | Outpatient (CLI) | payer MEDICARE, BC | LOC: COL.RAD 08:32 | DX: K21.9 Gastro-esophageal reflux disease without esophagitis (principal); K31.7 Polyp of stomach and duodenum; K22.4 Dyskinesia of esophagus; K22.8 Other specified diseases of esophagus ==

== ENCOUNTER → 2020-09-23 | Outpatient (CLI) | payer MEDICARE, BC ==
[~2020-09-23] MED LIST changes: +PEPCID 20MG TAB20 MG PO
[2020-09-23 10:44] LABS: HEMATOCRIT 44.4 % (37.0-47.0); HEMOGLOBIN 14.8 g/dl (12.5-16.0); MEAN CELL VOLUME 95 fl (80.0-100.0); MEAN CORPUSCULAR HEMOGLOBIN 32 pg (27.0-31.0); MEAN CORPUSCULAR HGB CONC 33 g/dl (33.0-37.0); MEAN PLATELET VOLUME 10.7 fl (7.4-10.4); PLATELET COUNT 272 K/mm3 (130-400); RED BLOOD COUNT 4.68 M/mm3 (4.10-5.30); REDCELL DISTRIBUTION WIDTH-CV 13.2 % (11.5-14.5)
[2020-09-23 10:45] LABS: ALBUMIN 4.3 gm/dL (3.5-5.0); BILIRUBIN,TOTAL 0.7 mg/dL (0.0-1.0); CALCIUM 9.7 mg/dL (8.4-10.2); CHOLESTEROL RISK RATIO 4.2; CREATININE, serum 0.71 (0.52-1.25); POTASSIUM 4.4 mmol/L (3.4-5.0); TOTAL PROTEIN 7.4 gm/dL (6.4-8.2)
[2020-09-23 11:15] LABS: THYROID STIMULATING HORMONE 1.26 uIU/mL (0.465-4.680)
== END ==
LOC: COL.LAB 09:39
PROVIDERS: Internal Medicine
DX: E55.9 Vitamin D deficiency, unspecified (principal); E78.5 Hyperlipidemia, unspecified; I10 Essential (primary) hypertension; R79.89 Other specified abnormal findings of blood chemistry; E78.00 Pure hypercholesterolemia, unspecified

== ENCOUNTER → 2020-10-08 | Outpatient (CLI) | payer MEDICARE, BC | LOC: MC.RAD 11:15 | DX: Z12.31 Encounter for screening mammogram for malignant neoplasm of breast (principal) ==

== ENCOUNTER → 2021-01-11 | Outpatient (CLI) | payer MEDICARE, BC ==
[~2021-01-11] MED LIST changes: +ZOFRAN ODT4 MG PO
[2021-01-11 10:29] LABS: BASO # 0.1 (0.0-0.2); BASO % 1.1 % (0.0-2.0); EOS # 0.5 (0.0-0.7); EOS % 10.4 % (0-4.0); GRAN # 2.1 (1.4-6.5); GRAN % 46.7 % (42.2-75.2); HEMATOCRIT 40.9 % (37.0-47.0); HEMOGLOBIN 13.3 g/dl (12.5-16.0); LYMPH # 1.4 (1.2-3.4); LYMPH % 31.6 % (20.0-51.0); MEAN CELL VOLUME 93 fl (80.0-100.0); MEAN CORPUSCULAR HEMOGLOBIN 30 pg (27.0-31.0); MEAN CORPUSCULAR HGB CONC 33 g/dl (33.0-37.0); MEAN PLATELET VOLUME 10.6 fl (7.4-10.4); MONO # 0.5 (0.1-0.6); PLATELET COUNT 261 K/mm3 (130-400)
[2021-01-11 10:38] LABS: BILIRUBIN,TOTAL 0.4 mg/dL (0.0-1.0); CALCIUM 9.3 mg/dL (8.4-10.2); CREATININE, serum 0.73 (0.52-1.25); POTASSIUM 4.4 mmol/L (3.4-5.0); TOTAL PROTEIN 7.2 gm/dL (6.4-8.2)
== END ==
LOC: COL.LAB 10:07
PROVIDERS: Internal Medicine
DX: Z01.818 Encounter for other preprocedural examination (principal)

== ENCOUNTER 2021-02-02 22:53 | Emergency (ER) | payer MEDICARE, BC ==
[~2021-02-02] VITALS: Ht 165.1 cm; Wt 65.9 kg
[~2021-02-02 22:53] MED LIST changes: -ZOFRAN ODT4 MG PO
[2021-02-02 23:16] LABS: BASO # 0.1 (0.0-0.2); BASO % 0.6 % (0.0-2.0); EOS # 0.1 (0.0-0.7); EOS % 1.8 % (0-4.0); GRAN # 4.5 (1.4-6.5); GRAN % 57.5 % (42.2-75.2); HEMATOCRIT 34.8 % (37.0-47.0); HEMOGLOBIN 11.2 g/dl (12.5-16.0); LYMPH # 2.2 (1.2-3.4); LYMPH % 28.3 % (20.0-51.0); MEAN CELL VOLUME 95 fl (80.0-100.0); MEAN CORPUSCULAR HEMOGLOBIN 31 pg (27.0-31.0); MEAN CORPUSCULAR HGB CONC 32 g/dl (33.0-37.0); MEAN PLATELET VOLUME 10.9 fl (7.4-10.4); MONO # 0.9 (0.1-0.6); MONO % 11.7 % (1.7-9.3); PLATELET COUNT 248 K/mm3 (130-400); RED BLOOD COUNT 3.66 M/mm3 (4.10-5.30); REDCELL DISTRIBUTION WIDTH-CV 13.6 % (11.5-14.5)
[2021-02-02 23:21] LABS: CALCIUM 8.6 mg/dL (8.4-10.2); CREATININE, serum 0.72 (0.52-1.25); POTASSIUM 4.3 mmol/L (3.4-5.0)
[2021-02-03 02:52] VITALS: BP 126/36; PULSE 69; TEMP 99
== END 2021-02-03 00:33 | disposition home or self-care (01) ==
LOC: COL.ER 22:53
PROVIDERS: Emergency Medicine
DX: G89.18 Other acute postprocedural pain (principal); M25.561 Pain in right knee; I10 Essential (primary) hypertension; K21.9 Gastro-esophageal reflux disease without esophagitis; Z88.1 Allergy status to other antibiotic agents; Z88.2 Allergy status to sulfonamides; Z79.02 Long term (current) use of antithrombotics/antiplatelets; Z88.8 Allergy status to other drugs, medicaments and biological substances; Z98.890 Other specified postprocedural states; Z79.899 Other long term (current) drug therapy
CPT/HCPCS: J1885

== ENCOUNTER 2021-02-07 10:22 | Emergency (ER) | payer MEDICARE, BC ==
[~2021-02-07] VITALS: Ht 165.1 cm; Wt 75.0 kg
[2021-02-07 10:27] VITALS: TEMP 97.8
[2021-02-07] MEDS ORDERED: PERCOCET 325 MG1 TA2 PO (11:24)
[2021-02-07] MEDS ORDERED: ZOFRAN ODT4 MG PO (11:24)
[2021-02-07 11:30] VITALS: BP 142/85; PULSE 65
== END 2021-02-07 11:30 | disposition home or self-care (01) ==
LOC: COL.ER 10:22
DX: G89.18 Other acute postprocedural pain (principal); M25.561 Pain in right knee; R60.0 Localized edema; Z98.890 Other specified postprocedural states; Z88.1 Allergy status to other antibiotic agents; Z88.2 Allergy status to sulfonamides; Z79.02 Long term (current) use of antithrombotics/antiplatelets; Z79.891 Long term (current) use of opiate analgesic
CPT/HCPCS: J1170

== ENCOUNTER → 2021-02-08 | Outpatient (CLI) | payer MEDICARE, BC ==
[~2021-02-08] MED LIST changes: +ZOFRAN ODT4 MG PO
== END ==
LOC: COL.VAS 09:09
DX: M79.89 Other specified soft tissue disorders (principal); Z98.890 Other specified postprocedural states

== ENCOUNTER → 2021-08-27 | Outpatient (CLI) | payer MEDICARE, BC | LOC: MC.RAD 13:15 | DX: Z12.31 Encounter for screening mammogram for malignant neoplasm of breast (principal) ==

== ENCOUNTER → 2021-09-22 | Outpatient (CLI) | payer MEDICARE, BC | LOC: COL.RAD 07:52 | DX: R68.81 Early satiety (principal) | CPT/HCPCS: A9541 ==

== ENCOUNTER → 2022-11-23 | Outpatient (CLI) | payer MEDICARE, BC | LOC: MC.RAD 13:15 | DX: Z12.31 Encounter for screening mammogram for malignant neoplasm of breast (principal) ==

== ENCOUNTER 2024-09-10 12:29 | Emergency (ER) | payer MEDICARE, BC ==
[~2024-09-10] VITALS: Ht 165.1 cm; Wt 66.4 kg
[~2024-09-10 12:29] MED LIST changes: +FENTANYL 12MCG TD; +TYLENOL 500MG500 MG PO
[2024-09-10 12:37] VITALS: TEMP 98
[2024-09-10 16:11] LABS: BASO % 0.8 % (0.0-2.0); EOS # 0.1 K/mm3 (0.0-0.7); EOS % 2.6 % (0.0-4.0); GRAN # 2.6 K/mm3 (1.4-6.5); GRAN % 52.9 % (42.2-75.2); HEMATOCRIT 38.9 % (37.0-47.0); HEMOGLOBIN 13.2 g/dl (12.5-16.0); LYMPH # 1.7 K/mm3 (1.2-3.4); LYMPH % 34.3 % (20.0-51.0); MEAN CELL VOLUME 93 fl (80.0-100.0); MEAN CORPUSCULAR HEMOGLOBIN 32 pg (27-31); MEAN CORPUSCULAR HGB CONC 34 g/dl (33.0-37.0); MEAN PLATELET VOLUME 10.8 fl (7.4-10.4); MONO # 0.5 K/mm3 (0.1-0.6); MONO % 9.2 % (1.7-9.3); PLATELET COUNT 244 K/mm3 (130-400); RED BLOOD COUNT 4.18 M/mm3 (4.10-5.30); REDCELL DISTRIBUTION WIDTH-CV 12.6 % (11.5-14.5)
[2024-09-10 16:32] LABS: ALBUMIN 3.7 g/dL (3.4-4.8); BILIRUBIN,TOTAL 0.4 mg/dL (0.2-1.2); CALCIUM 9.3 mg/dL (8.4-10.2); CREATININE, serum 0.74 mg/dL (0.57-1.11); POTASSIUM 4.3 mEq/L (3.5-4.5); TOTAL PROTEIN 7.8 g/dl (6.2-8.1)
[2024-09-10 16:37] LABS: TROPONIN-I 0.015 ng/mL (0.00-0.033)
[2024-09-10] MEDS ORDERED: NS 100 ML IV SCH (16:49)
[2024-09-10] MEDS ORDERED: Iohexol 300 - 100 ML VIAL IV ONE (16:50)
[2024-09-10] MEDS ORDERED: Sucralfate Susp 1 GM/10 ML UD PO ONE (17:30)
[2024-09-10] MEDS ORDERED: LORazepam 2 MG/ML 1 ML VIAL IV ONE (17:30)
[2024-09-10 18:39] VITALS: BP 130/76; PULSE 60
== END 2024-09-10 18:39 | disposition home or self-care (01) ==
LOC: COL.ER 12:29
PROVIDERS: Physician Assistant
DX: K21.9 Gastro-esophageal reflux disease without esophagitis (principal); I66.9 Occlusion and stenosis of unspecified cerebral artery; Z79.02 Long term (current) use of antithrombotics/antiplatelets
CPT/HCPCS: J2060; Q9967